=== PATIENT | male | born 1985 | race Caucasian/White ===

== ENCOUNTER 2022-08-24 13:53 | Emergency (ER) | payer BC, SELFPAY ==
--- NOTE | ~2022-08-24 | XR_ITS ---
EXAMINATION: XR heel LT min 2V DATE: 08/24/2022 14:33 INDICATION: Left heel pain. TECHNIQUE: 2 views of left calcaneus were obtained. COMPARISON: None. FINDINGS: Bone alignment is normal. No fracture. Joint spaces are normal. There are enthesophytes at the posterior and plantar aspects of calcaneal tuberosity. IMPRESSION: 1. No fracture. Reviewed, dictated and finalized at location A. IMPRESSION: 1. No fracture.
[2022-08-24 14:01] VITALS: BP 124/77; PULSE 98; RESP 16; TEMP 37.5; O2SAT 98
--- NOTE | 2022-08-24 14:50 | ED.GENADULT ---
HPI - General Adult General Chief complaint: Extremity Injury, Lower Stated complaint: Left Foot Pain Time Seen by Provider: 08/24/22 14:40 Source: patient, RN notes reviewed and old records reviewed Mode of arrival: ambulatory Limitations: no limitations History of Present Illness HPI narrative: 37 year old male who present to express care with complaints of pain to posterior heel area and also to the bottom of his foot for the past week. Patient reports that pain is worse first thing in morning when he first bears weight. 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 Patient rerports that he has been taking Ibuprofen for his discomfort MD complaint: left foot heel pain Onset (ago): week(s) (1) Location: lower extremity (left foot) Severity scale (1-10): 4 Quality: aching and sharp Exacerbating factors: other (standing, weight bearing) Treatments prior to arrival: NSAID Related Data Home Medications Medication Instructions Recorded Confirmed irbesartan 150 1 tablet PO DAILY 04/06/19 08/24/22 mg-hydrochlorothiazide 12.5 mg tablet bupropion HCl 200 mg tablet,12 hr 200 mg PO BID 08/24/22 08/24/22 sustained-release hydroxyzine HCl 25 mg tablet 25 mg PO BID 08/24/22 08/24/22 semaglutide 0.25 mg or 0.5 mg (2 0.25 mg subcut WEEKLY 08/24/22 08/24/22 mg/3 mL) subcutaneous pen injector (Ozempic) Allergies Allergy/AdvReac Type Severity Reaction Status Date / Time No Known Allergies Allergy Verified 08/24/22 14:26 Review of Systems Review of Systems: CONSTITUTIONAL: Denies fever, chills, or sweats. EYES: Denies visual changes, redness, or discharge. ENT: Denies rhinorrhea, congestion, sore throat, or otalgia. CARDIOVASCULAR: Denies chest pain, palpitations, or edema. RESPIRATORY: Denies cough or dyspnea. GASTROINTESTINAL: Denies abdominal pain, nausea, vomiting, or diarrhea. GENITOURINARY: Denies dysuria or hematuria. SKIN: Denies rash or itching. MUSCULOSKELETAL: Denies back pain,positive left heel and bottom of foot pain, or myalgia. NEUROLOGIC: Denies headache, numbness, or weakness. PSYCHIATRIC: Positive for anxiety or depression. All systems reviewed & are unremarkable except as noted in HPI and below PMFSH Past Medical History Medical History (Updated 08/25/22 @ 21:47 by Carey Quintanilla NP) Anxiety Depression HTN (hypertension) Morbid obesity Family History Family History (Updated 04/06/19 @ 18:50 by LISSET Moser) Mother Diabetes mellitus Social History Social History (Updated 08/25/22 @ 21:48 by Carey Quintanilla NP) Smoking status: Never smoker Alcohol intake: current Alcohol use details: rare Substance use: never Living arrangements: with family Gender identity (if verbalized by the patient): Male Comments At time of signature, agree with nursing past medical, surgical, social and family history. There is no relevant family history pertinent to the presenting complaint Exam Narrative: GENERAL: Well-appearing, well-nourished, morbid obesity, and in no acute distress. HEAD: Normocephalic, atraumatic. EYES: PERRLA and EOMI. ENT: Nares clear, no rhinorrhea or epistaxis. Mucous membranes moist. NECK: Supple. no lymphadenopathy CHEST: Clear to auscultation. No respiratory distress.SAO2 98% on room air HEART: Regular rate and rhythm. No murmur heard. Normal peripheral pulses. ABDOMEN: Soft, nontender, nondistended, normal active bowel sounds. EXTREMITIES: Normal range of motion. No edema.positive posterior heel pain and pain to plantar aspect of left foot, denies any tingling or numbness SKIN: Warm, dry, no rash. NEURO: No focal deficits. Alert and oriented x3. Course Course Emergency Course: Patient is aware of diagnosis, understands and agrees to treatment plan.? Anticipatory guidance given.? Patient agrees to follow-up as directed and is aware of reasons to seek care at the emergency department.
== END 2022-08-24 15:10 | disposition home or self-care (01) ==
PROVIDERS: Emergency Provider Registered Nurse; PCP Internal Medicine
DX: M72.2 Plantar fascial fibromatosis (principal); M77.32 Calcaneal spur, left foot; I10 Essential (primary) hypertension; E66.01 Morbid (severe) obesity due to excess calories; Z68.44 Body mass index [BMI] 60.0-69.9, adult; F41.9 Anxiety disorder, unspecified; F32.A Depression, unspecified
CPT/HCPCS: 73650; 99203; G0463

== ENCOUNTER 2024-05-31 16:07 | Emergency (ER) | payer BC, SELFPAY ==
--- NOTE | ~2024-05-31 | XR_ITS ---
EXAMINATION: XR foot RT min 3V DATE: 05/31/2024 16:30 INDICATION: Generalized metatarsal pain at the right foot post tripping injury TECHNIQUE: Dorsoplantar, two oblique and lateral views of the right foot were obtained. COMPARISON: None. FINDINGS: 25 degree hallux valgus. Bone alignment is otherwise normal. No fracture. Joint spaces are normal. So ft tissues tissue swelling over the dorsum of the mid and forefoot. IMPRESSION: 1. No acute osseous abnormality. Reviewed, dictated and finalized at location B. [facility]
[2024-05-31 16:11] VITALS: BP 152/72; PULSE 88; RESP 18; TEMP 37.6; O2SAT 99
--- NOTE | 2024-05-31 16:15 | ED.LOWEXIN ---
HPI - Extremity Injury (Lower) General Chief Complaint: Extremity Injury, Lower Stated Complaint: Right foot/ankle injury Time Seen by Provider: 05/31/24 16:16 Source: patient Mode of arrival: ambulatory Limitations: no limitations History of Present Illness HPI Narrative: 38-year-old male presented for complaint of acute on chronic right foot pain. He endorses a history of plantar fasciitis, but states he tripped today and heard a pop. Pt did not fall to the ground. He says the foot pain was worse after this incident. He had taken naproxen prior to the fall. denies bruising, deformity, swelling, numbness, tingling or weakness. Related Data Home Medications ?Medication ?Instructions ?Recorded ?Confirmed ?Last Taken ?Type irbesartan 150 1 tablet PO DAILY 04/06/19 08/24/22 Unknown History mg-hydrochlorothiazide 12.5 mg tablet bupropion HCl 200 mg tablet,12 hr 200 mg PO BID 08/24/22 08/24/22 Unknown History sustained-release hydroxyzine HCl 25 mg tablet 25 mg PO BID 08/24/22 08/24/22 Unknown History Allergies Allergy/AdvReac Type Severity Reaction Status Date / Time No Known Allergies Allergy Verified 05/31/24 16:15 Review of Systems Review of Systems: CONSTITUTIONAL: Denies body aches, fever, chills CARDIOVASCULAR: Denies chest pain, palpitations, or edema. RESPIRATORY: Denies cough or dyspnea. SKIN: Denies rash, itching, or wounds. MUSCULOSKELETAL: reports foot pain NEUROLOGIC: Denies numbness, tingling, or weakness. All systems reviewed & are unremarkable except as noted in HPI and below PMFSH Past Medical History Medical History Morbid obesity Depression Anxiety HTN (hypertension) Family History Family History Mother Diabetes mellitus Social History Social History Smoking status: Never smoker Alcohol intake: current Alcohol use details: rare Substance use: never Living arrangements: with family Gender identity (if verbalized by the patient): Male Comments At time of signature, I have reviewed and agree with nursing past medical, surgical, social and family history unless otherwise noted. Please see nursing chart for further information. There is no relevant family history pertinent to the presenting complaint Exam Narrative: GENERAL: Well-appearing CHEST: Speaks in full sentences. No respiratory distress. HEART: Regular rate and rhythm. Normal and equal peripheral pulses. EXTREMITIES: Right foot has normal strength and sensation, normal range of motion. Mild swelling. Mild tender to palpation of plantar surface of MTP's and midfoot. No ecchymosis, No open wounds, or obvious deformity; alignment normal, pulse palpable and equal bilaterally, skin warm, dry, pink. Capillary refill less than 3 seconds. SKIN: Warm, dry, no rash. NEURO: Alert and oriented x3. PSYCH: Normal mood and affect Course Course Emergency Course: Patient is aware of diagnosis, understands and agrees to treatment plan. Anticipatory guidance given. Patient agrees to follow-up as directed and is aware of reasons to seek care at the emergency department. Portions of this record may have been created with voice recognition software Level of Care: Express Care Visit Vital Signs Vital signs: Reviewed MDM - Extremity Injury (Lower) MDM Narrative Medical decision making narrative: Discussed physical exam findings. Advised supportive measures and signs/symptoms to go to the ER. Pt is appropriate for outpt treatment and f/u. Imaging Data Radiologist's impression: Patient: Jemal Weaver Jr. : 1985 MR#: [id number] Age: 38 Acct:[id number] Loc: [facility] ADM Date: 05/31/24Attending Dr: Ordering Physician: Harriett Medina APRN Date of Service: 05/31/24 Procedure(s): XR foot RT min 3V Accession Number(s): [id number] cc: Harriett Medina APRN; FIREAR[employer] ASSEMBLY SUPERVISOR PHYSICIAN~ EXAMINATION: XR foot RT min 3V DATE: 05/31/2024 16:30 INDICATION: Generalized metatarsal pain at the right foot post tripping injury TECHNIQUE: Dorsoplantar, two oblique and lateral views of the right foot were obtained. COMPARISON: None. FINDINGS: 25 degree hallux valgus. Bone alignment is otherwise normal. No fracture. Joint spaces are normal. Soft tissues tissue swelling over the dorsum of the mid and forefoot. IMPRESSION: 1. No acute osseous abnormality. Discharge Plan Discharge Clinical Impression: Right foot strain Patient Disposition: Home, Self-Care Condition: Stable Instructions: Antibiotic Form, Foot Sprain (ED) Additional Instructions: Rest and elevate the right leg; bear weight as tolerated Apply ice 15-20 minute intervals several times a day Motrin 800mg every 8 hours, alternate with Tylenol 1000mg every 8 hours as needed Follow up with your primary care provider as needed go to the ER for worsening symptoms or concerns Patient Language: Gibraltarian Prescriptions: No Action irbesartan-hydrochlorothiazide 150-12.5 mg Tablet 1 tablet PO DAILY bupropion HCl 200 mg tablet sustained-release 12 hr 200 mg PO BID hydroxyzine HCl 25 mg tablet 25 mg PO BID Ozempic 0.25 mg or 0.5 mg (2 mg/3 mL) Pen Injector 0.25 mg SUBCUT WEEKLY Rx Instructions: for 4 weeks prednisone 20 mg tablet 20 mg PO BID Qty: 10 0RF Follow-up/Referrals: PHYSICIAN,FIREARMS ASSEMBLY SUPERVISOR [Primary Care Provider] - Time of Disposition: 16:39
== END 2024-05-31 16:43 | disposition home or self-care (01) ==
PROVIDERS: Emergency Provider Nurse Practitioner Family
DX: S93.601A Unspecified sprain of right foot, initial encounter (principal); W18.40XA Slipping, tripping and stumbling without falling, unspecified, initial encounter; F41.8 Other specified anxiety disorders; I10 Essential (primary) hypertension
CPT/HCPCS: 73630; 99213; G0463

== ENCOUNTER 2024-11-10 16:09 | Emergency (ER) | payer OTHER, SELFPAY ==
--- OUTSIDE RECORDS SUMMARY | 2024-11-10 16:12 | XMS_ITS | Clinical Summary ---
Author Organization [facility] Address [address] [place] [address] Care Team Providers Care Supervisor Cell Room Name Role Phone Altagracia Langston MD Primary Care Provider [phone] Altagracia Langston MD Unavailable Allergies No known active allergies Medications hydrOXYzine (ATARAX) 25 mg tablet Take 1 tablet (25 mg total) by mouth every 6 (six) hours 12 tablet 09/21/2018 Active buPROPion SR (WELLBUTRIN SR) 150 mg 12 hr tablet TK 1 T PO BID 1 10/25/2018 Active naproxen (NAPROSYN) 500 mg tablet Take 1 tablet (500 mg total) by mouth 2 (two) times a day with meals 30 tablet 09/14/2022 Active Active Problems No known active problems Medical History Medical History Date Comments Anxiety Social History Tobacco Use Types Packs/Day Years Used Date Smoking Tobacco: Never Smokeless Tobacco: Never Tobacco Cessation:Counseling Given: Not Answered Personal Safety Answer Date Recorded Getting School Help Needed Not on file 07/23 Sex and Gender Information Value Date Recorded Sex Assigned at Not on file Legal Sex 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 Gender Identity Not on file Sexual Orientation Not on file Obstetrics History Last Filed Vital Signs Vital Sign Reading Time Taken Comments Blood Pressure 101/58 09/14/2022 11:00 PM CDT Pulse 71 09/14/2022 11:00 PM CDT Temperature 36.7 C (98 F) 09/14/2022 7:15 PM CDT Respiratory Rate 18 09/14/2022 7:15 PM CDT Oxygen Saturation 99% 09/14/2022 11:00 PM CDT Inhaled Oxygen Concentration - - Weight 226.8 kg (500 lb) 09/14/2022 7:15 PM CDT Height 185.4 cm (6' 1) 04/11/2019 5:39 AM IT DESKTOP SUPPORT SPECIALIST Body Mass Index 65.97 04/11/2019 5:39 AM IT DESKTOP SUPPORT SPECIALIST Plan of Treatment Health Maintenance Due Date Last Done Comments Depression Screening 1985 Hepatitis C Screening 1985 Varicella Vaccines (1 of 2 - 13+ 2-dose series) 1999 Hepatitis B Screening 2004 Regular Well Visit/Exam 18-64 2004 Covid-19 Vaccine ( season) 2024 03/28/2022, 03/09/2021, 08/18/2020, Additional history exists Influenza Vaccine (Season Ended) 2025 03/28/2022, 03/09/2021, 01/29/2020, Additional history exists DTaP/Tdap/Td Vaccine (7 - Td or Tdap) 10/25/2028 10/25/2018, 01/16/2003, 12/12/1991, Additional history exists HPV Vaccines Aged Out No longer eligi ble based on patient's age to complete this topic Pneumococcal vaccine <65 Aged Out No longer eligible based on patient's age to complete this topic Insurance [facility] Care Teams Supervisor Cell Room Relationship Specialty Start Date End Date Altagracia Langston MD [address] [address] PCP - General 10/30/19 Altagracia Langston MD [address] [address] 10/30/19
--- OUTSIDE RECORDS SUMMARY | 2024-11-10 16:12 | XMS_ITS | Referral Summary ---
Author Organization [facility] Address [address] [place] [address] Care Team Providers Care Horses Or Mules Teamster Name Role Phone Altagracia Langston MD Primary Care Provider Altagracia Langston MD Unavailable Allergies No known [...] Active Active Problems No known active problems Social History Tobacco Use Types Packs/Day Years Used Date Smoking Tobacco: Never Smokeless Tobacco: Never Tobacco Cessation:Counseling Given: Not Answered Personal Safety Answer Date Recorded Getting School Help Needed Not on file 07/23 Sex and Gender Information Value Date Recorded Sex Assigned at Not on file 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 Gender Identity Not on file Sexual Orientation Not on file Last Filed Vital Signs Vital Sign Reading [...] 185.4 cm (6' 1) 04/11/2019 5:39 AM TASSEL CLIPPER Body Mass Index 65.97 04/11/2019 5:39 AM TASSEL CLIPPER Plan of Treatment Not on file Insurance [facility] [place] [id number] Care Teams Horses Or Mules Teamster Relationship Specialty Start Date End Date Altagracia Langston MD [address] [place] [id number] PCP - General 10/30/19 Altagracia Langston MD [address] [place] [id number] 10/30/19
--- OUTSIDE RECORDS SUMMARY | 2024-11-10 16:12 | XMS_ITS | Clinical Summary ---
Author Organization [facility] Address [address] [place] [address] Phone Care Team Providers Care Associate Engineer Name Role Phone Altagracia Langston MD Primary Care Provider [phone] Social History Tobacco Use Types Packs/Day Years Used Date Smoking Tobacco: Never Assessed Sex and Gender Information Value Date Recorded Sex Assigned at Not on file Legal Sex Male 11:38 AM CDT Gender Identity Not on file Sexual Orientation Not on file Plan of Treatment Not on file [place] [id number] Care Teams Associate Engineer Relationship Specialty Start Date End Date Altagracia Langston MD [address] [place] [address] PCP - General Internal Medicine 10/29/18
[2024-11-10 16:22] VITALS: BP 150/84; PULSE 81; RESP 20; TEMP 36.9; O2SAT 100
--- NOTE | 2024-11-10 16:40 | ED_ITS ---
HPI - Skin/Abscess/Foreign Bdy General Chief complaint: Skin/Abscess/Foreign Body Stated complaint: rash Source: patient Mode of arrival: ambulatory Limitations: no limitations History of Present Illness HPI narrative: 39 y/o morbidly obese male presented for c/o 'rash' to abdomen, first noticed 5 days ago without significant change since he noticed it. Endorses the area is warm, red, and tender. Says the 2 days prior to onset, he had fever and chills which broke after one day. Pt applied hydrocortisone cream. Pt is also aware of a hernia. Denies n/v/d. Related Data Home Medications ?Medication ?Instructions ?Recorded ?Confirmed ?Last Taken ?Type bupropion HCl 200 mg tablet,12 hr 200 mg PO BID 08/24/22 08/24/22 Unknown History sustained-release hydroxyzine HCl 25 mg tablet 25 mg PO BID 08/24/22 08/24/22 Unknown History carvedilol 3.125 mg tablet mg 11/10/24 Unknown History Allergies Allergy/AdvReac Type Severity Reaction Status Date / Time No Known Allergies Allergy Verified 11/10/24 16:29 Review of Systems Review of Systems: CONSTITUTIONAL: Denies body aches, fever, chills, or sweats. EYES: Denies visual changes, redness, or discharge. ENT: Denies rhinorrhea, congestion CARDIOVASCULAR: Denies chest pain, palpitations, or edema. RESPIRATORY: Denies cough or dyspnea. GASTROINTESTINAL: Denies abdominal pain, nausea, vomiting, or diarrhea. SKIN: reports a rash to abdomen MUSCULOSKELETAL: Denies back pain, joint pain, or myalgia. NEUROLOGIC: Denies headache, numbness, tingling, or weakness. [facility] Past Medical History Medical History Morbid obesity Depression Anxiety HTN (hypertension) Family History Family History Mother Diabetes mellitus Social History Social History Smoking status: Never smoker Alcohol intake: current Alcohol use details: rare Substance use: never Living arrangements: with family Gender identity (if verbalized by the patient): Male Comments At time of signature, I have reviewed and agree with nursing past medical, surgical, social and family history unless otherwise noted. Please see nursing chart for further information. There is no relevant family history pertinent to the presenting complaint Exam Narrative: GENERAL: Well-appearing HEAD: Normocephalic, atraumatic. EYES: conjunctivae clear, and EOMI. ENT: Mucous membranes moist. Oropharynx without edema, erythema or lesions. NECK: Supple. No lymphadenopathy CHEST: Clear to auscultation. HEART: Regular rate and rhythm. SKIN: Warm, dry. Large area of erythema, warmth, and induration c/w cellulitis extending across the lower abdominal pannus. Tender, no drainage or wounds. Umbilical hernia noted. NEURO: Alert and oriented x3. Course Course Emergency Course: Patient is aware of diagnosis, understands and agrees to treatment plan. Anticipatory guidance given. Patient agrees to follow-up as directed and is aware of reasons to seek care at the emergency department. Portions of this record may have been created with voice recognition software Level of Care: Express Care Visit Vital Signs Vital signs: Vital Signs Temperature 98.4 F 11/10/24 16:22 Pulse Rate 81 11/10/24 16:22 Respiratory Rate 20 11/10/24 16:22 Blood Pressure 150/84 H 11/10/24 16:22 Pulse Oximetry 100 11/10/24 16:22 Oxygen Delivery Room Air 11/10/24 16:22 Temperature 98.4 F 11/10/24 16:22 Pulse Rate 81 11/10/24 16:22 Respiratory Rate 20 11/10/24 16:22 Blood Pressure 150/84 H 11/10/24 16:22 Pulse Oximetry 100 11/10/24 16:22 Oxygen Delivery Room Air 11/10/24 16:22 Reviewed Transfer Transfered to: [facility] Transportation: Other (Private vehicle) Transfer rationale: Pt is agreeable to transfer. Requests transfer to [facility] via private vehicle. Risks of transportation reviewed with pt including injury, worsening of condition and . v/u. Report called to hospital, spoke with Razia DUNN, Dr Benito, accepting physician. Pt is in stable condition at time of transfer. Advised to remain NPO and go directly to the hospital. MDM - Skin/Abscess/Foreign Bdy MDM Narrative Medical decision making narrative: Advised ER transfer for significant abdominal cellulitis, requests [facility]. Differential Diagnosis Differential diagnosis: Likely abscess of skin or subcutaneous tissue, viral exanthem, dermatophytosis, urticaria, herpes zoster, cellulitis, eczema, insect bites, impetigo and contact dermatitis Discharge Plan Discharge Clinical Impression: Cellulitis Patient Disposition: Acute Care Hospital Condition: Stable Patient Language: Serbian Prescriptions: No Action bupropion HCl 200 mg tablet sustained-release 12 hr 200 mg PO BID hydroxyzine HCl 25 mg tablet 25 mg PO BID carvedilol 3.125 mg tablet Follow-up/Referrals: PHYSICIAN NOT ON STAFF,NONSTAFF [Primary Care Provider] - Time of Disposition: 16:50
== END 2024-11-10 16:55 | disposition short-term general hospital (02) ==
PROVIDERS: Emergency Provider Nurse Practitioner Family
DX: L03.311 Cellulitis of abdominal wall (principal); I10 Essential (primary) hypertension; E66.01 Morbid (severe) obesity due to excess calories; Z68.43 Body mass index [BMI] 50.0-59.9, adult; F41.9 Anxiety disorder, unspecified; F32.A Depression, unspecified
CPT/HCPCS: 99212; G0463